=== PATIENT | male | born 1990 | race Caucasian/White ===

== ENCOUNTER 2019-05-29 17:23 | Inpatient (IN) | payer OTHER ==
[~2019-05-29] VITALS: Ht 182.9 cm; Wt 78.0 kg
[2019-05-29 19:05] VITALS: BP 122/72
--- NOTE | 2019-05-29 19:56 | PDOC1 ---
History and Physical Date of Admission Date of Admission DATE: 05/29/19 TIME: 19:46 Identification/Chief Complaint Chief Complaint seen in er [facility] ER WITH POSSIBLE SEIZURE Past Medical History Past Medical History SEIZURES Cardiovascular: No pertinent hx Pulmonary: No pertinent hx GI: No pertinent hx Endocrine: No pertinent hx Dermatology: No pertinent hx Family History Family History: High Cholestrol Social History Smoke: No ALCOHOL: none Drugs: None ROS Review of System 14 PT ROS OTHERWISE WNL General: No: Chills, Night Sweats, Fatigue, Malaise, Appetite, Other PSYCHOLOGICAL ROS: No: Anxiety, Behavioral Disorder, Concentration difficultie, Decreased libido, Depression, Disorientation, Hallucinations, Hostility, Irritablity, Memory difficulties, Mood Swings, Obsessive thoughts, Physical abuse, Sexual abuse, Sleep disturbances, Suicidal ideation, Other Eyes: No Blurry vision, No Decreased vision, No Double vision, No Dry eyes, No Excessive tearing, No Eye Pain, No Itchy Eyes, No Loss of vision, No Photophobia, No Scotomata, No Uses contacts, No Uses glasses, No Other HEENT: No: Heacaches, Visual Changes, Hearing change, Nasal congestion, Nasal discharge, Oral lesions, Sinus pain, Sore Throat, Epistaxis, Sneezing, Snoring, Tinnitus, Vertigo, Vocal changes, Other ALLERGY AND IMMUNOLOGY: No: Hives, Insect Bite Sensitivity, Itchy/Watery Eyes, Nasal Congestion, Post Nasal Drip, Seasonal Allergies, Other Hematological and Lymphatic: No: Bleeding Problems, Blood Clots, Blood Transfusions, Brusing, Night Sweats, Pallor, Swollen Lymph Nodes, Other ENDOCRINE: No: Breast Changes, Galactorrhea, Hair Pattern Changes, Hot Flashes, Malaise/lethargy, Mood Swings, Palpitations, Polydipsia/polyuria, Skin Changes, Temperature Intolerance, Unexpected Weight Changes, Other Respiratory: No: Cough, Hemoptysis, Orthopnea, Pleuritic Pain, Shortness of breath, SOB with excertion, Sputum Changes, Stridor, Tachypnea, Wheezing, Other Cardiovascular: No Chest Pain, No Palpitations, No Orthopnea, No Paroxysmal Noc. Dyspnea, No Edema, No Lt Headedness, No Other Gastrointestinal: No Nausea, No Vomiting, No Abdominal Pain, No Diarrhea, No Constipation, No Melena, No Hematochezia, No Other Genitourinary: No Dysuria, No Frequency, No Incontinence, No Hematuria, No Retention, No Discharge, No Urgency, No Pain, No Flank Pain, No Other, No , No , No , No , No , No , No Musculoskeletal: No Gait Disturbance, No Joint Pain, No Joint Stiffness, No Joint Swelling, No Muscle Pain, No Muscular Weakness, No Pain In:, No Swelling In:, No Other Neurological: Yes Seizures Skin: No Dry Skin, No Eczema, No Hair Changes, No Lumps, No Mole Changes, No M ottling, No Nail Changes, No Pruritus, No Rash, No Skin Lesion Changes, No Other, No Acne Physical Exam General: Alert, Oriented X3, Cooperative, No acute distress HEENT: PERRLA Lungs: Clear to auscultation, Normal air movement Heart: S1S2, RRR, no thrills, no rubs, no gallops, no murmurs Breasts: Not examined Abdomen: Normal bowel sounds, Soft Rectal Exam: not examined PELVIC: Examination not indicated Neuro: Normal speech, Strength at 5/5 X4 ext, Sensation intact, Cranial nerves 3-12 NL Psych/Mental Status: Mental status NL, Mood NL VTE Prophylaxis Ordered VTE Prophylaxis Devices: Yes VTE Pharmacological Prophylaxi: Yes Assessment/Plan Assessment/Plan IMPRESSION 1. Apparent pseudoseizure 2. hx seizure disorder plan home meds seizure precautions neurology consult dvt prophylaxis cont KEPPRA 1000mg po bid KEPPRA level 60 min pt exam, chart review, > 50% of time spent with exam, chart review, pt care coordination SHOAIB PERDUE MD May 29, 2019 19:56
[2019-05-29] MEDS ORDERED: DOCUSATE SODIUM 100 MG CAPSULE. PO PRN (20:00)
[2019-05-29] MEDS ORDERED: guaiFENesin ORAL 200 MG/10 ML LIQUID. PO PRN (20:00)
[2019-05-29] MEDS ORDERED: ACETAMINOPHEN 325 MG TABLET. PO PRN (20:00)
[2019-05-29] MEDS ORDERED: cloNIDine HCL 0.1 MG TABLET PO PRN (20:00)
[2019-05-29] MEDS ORDERED: LORazepam 0.5 MG TABLET PO PRN (20:00)
[2019-05-29] MEDS ORDERED: ONDANSETRON PF 4 MG/2 ML VIAL. IV PRN (20:00)
[2019-05-29] MEDS ORDERED: MAG HYDROX/ALUMINUM HYD/SIMETH 30 ML ORAL.SUSP PO PRN (20:00)
[2019-05-29] MEDS ORDERED: 0.9 % SODIUM CHLORIDE 10 ML DISP.SYRIN. IV PRN (20:00)
[2019-05-29] MEDS ORDERED: ALBUTEROL SULFATE 2.5 MG/3 ML NEBU. NEB PRN (20:00)
[2019-05-29] MEDS ORDERED: PARO10TA57 PO (20:14)
[2019-05-29] MEDS ORDERED: LEVE100020 PO (20:14)
[2019-05-29] MEDS ORDERED: HYDR25TA PO (20:14)
[2019-05-29] MEDS ORDERED: DIVA500T2 PO (20:14)
[2019-05-29] MEDS: IV NORMAL SALINE 1000ML BAG 1,000 ML IV SCH (20:29)
[2019-05-29] MEDS ORDERED: PARoxetine 10 MG TABLET PO SCH (22:00)
[2019-05-29] MEDS: levETIRAcetam 500 MG TABLET PO SCH (22:32)
[2019-05-29] MEDS: DIVALPROEX DELAYED RELEASE 500 MG TABLET.DR. PO SCH (22:34)
[2019-05-29] MEDS: hydrOXYzine 25 MG TABLET PO SCH (22:34)
[2019-05-29 23:04] VITALS: BP 118/60
[2019-05-30 03:12] VITALS: BP 110/56
[2019-05-30] MEDS: IV NORMAL SALINE 1000ML BAG 1,000 ML IV SCH (05:59)
[2019-05-30 07:00] VITALS: BP 127/58
[2019-05-30] MEDS: DIVALPROEX DELAYED RELEASE 500 MG TABLET.DR. PO SCH (08:58)
[2019-05-30] MEDS: hydrOXYzine 25 MG TABLET PO SCH (08:58)
[2019-05-30] MEDS: levETIRAcetam 500 MG TABLET PO SCH (08:58)
[2019-05-30] MEDS ORDERED: ENOXAPARIN 40 MG/0.4 ML SYRINGE. SQ SCH (09:00)
[2019-05-30] MEDS ORDERED: hydrOXYzine 25 MG TABLET PO SCH (09:00)
[2019-05-30] MEDS ORDERED: DIVALPROEX DELAYED RELEASE 500 MG TABLET.DR. PO SCH (09:00)
[2019-05-30] MEDS ORDERED: ACETAMINOPHEN 500 MG TABLET PO PRN (09:00)
[2019-05-30] MEDS ORDERED: PARoxetine 10 MG TABLET PO SCH (09:00)
[2019-05-30] MEDS ORDERED: ONDANSETRON PF 4 MG/2 ML VIAL. IV PRN (09:00)
[2019-05-30 11:00] VITALS: BP 126/74
--- NOTE | 2019-05-30 11:10 | PDOC2 ---
NEUROLOGY CONSULT Date of Admission Date of Admission DATE: 05/30/19 TIME: 11:02 Reason for Consult Reason for Consult: seizures Referring Physician Referring Physician: Dr. Sampson Source Source: Chart review, Patient History of Present Illness History of Present Illness The patient is a 28-year-old right-handed male inmate who says that he has had seizures since . He says they come on when he is under stress. he was in the [facility] department on the night of 05/28 and had a negative head CT has reviewed below, then returned on 05/29 with more seizures. It was decided to transfer the patient to this hospital. I note from the emergency department record from 05/29 that the patient's "seizure" ceased when he was told he was going to need a [place] catheter.He says that he often bites his tongue during the seizures, but there is no incontinence. These are generalized convulsive of seizures. There is no aura. Past Medical History CENTRAL NERVOUS SYSTEM: Seizure Psych: Addictions ( methamphetamine), Depression (Suicide attempt) Past Surgical History Past Surgical History: No pertinent history Family History Family History: Other ( mother and sister have seizures) Social History Social History Inmate, ex-methamphetamine user, occasional tobacco, no alcohol Current Medications Current Medications Current Medications Sodium Chloride (Normal Saline Flush) 3 ml QSHIFT PRN IV AFTER MEDS AND BLOOD DRAWS; Start 05/29/19 at 20:00 Sodium Chloride 1,000 ml @ 100 mls/hr Q10H IV Last administered on 05/30/19at 05:59; Start 05/29/19 at 21:00 Ondansetron HCl (Zofran) 4 mg PRN Q4HRS PRN IV NAUSEA/VOMITING; Start 05/29/19 at 20:00; Stop 05/30/19 at 08:55; Status DC Acetaminophen (Tylenol) 650 mg PRN Q4HRS PRN PO TEMP OVER 100.4F OR MILD PAIN; Start 05/29/19 at 20:00; Stop 05/30/19 at 08:54; Status DC Al Hydroxide/Mg Hydroxide (Mylanta Plus Xs) 30 ml PRN DAILY PRN PO HEARTBURN / GAS; Start 05/29/19 at 20:00 Clonidine HCl (Catapres) 0.1 mg PRN Q6HRS PRN PO SBP>160 OR DBP>90; Start 05/29/19 at 20:00 Docusate Sodium (Colace) 100 mg PRN BID PRN PO CONSTIPATION; Start 05/29/19 at 20:00 Albuterol Sulfate (Ventolin Neb Soln) 2.5 mg PRN Q4HRS PRN NEB SHORTNESS OF BREATH; Start 05/29/19 at 20:00 Guaifenesin (Robitussin) 200 mg PRN Q4HRS PRN PO COUGH; Start 05/29/19 at 20:00 Lorazepam (Ativan) 0.5 mg PRN Q4HRS PRN PO ANXIETY / AGITATION; Start 05/29/19 at 20:00 Lorazepam (Ativan Inj) 2 mg PRN Q4HRS PRN IV ANXIETY / AGITATION; Start 05/29/19 at 20:00 Enoxaparin Sodium (Lovenox 40mg Syringe) 40 mg DAILY SQ Last administered on 05/30/19at 08:58; Start 05/30/19 at 09:00 Divalproex Sodium (Depakote) 500 mg BID PO ; Start 05/30/19 at 09:00; Stop 05/29/19 at 21:52; Status DC Hydroxyzine HCl (Atarax) 75 mg BID PO ; Start 05/30/19 at 09:00; Stop 05/29/19 at 21:52; Status DC Paroxetine HCl (Paxil) 10 mg DAILY PO ; Start 05/30/19 at 09:00; Stop 05/29/19 at 21:52; Status DC Levetiracetam (Keppra) 1,000 mg BID PO Last administered on 05/30/19at 08:58; Start 05/29/19 at 22:00 Divalproex Sodium (Depakote) 500 mg BID PO Last administered on 05/30/19at 08:58; Start 05/29/19 at 22:00 Hydroxyzine HCl (Atarax) 75 mg BID PO Last administered on 05/30/19at 08:58; Start 05/29/19 at 22:00 Paroxetine HCl (Paxil) 10 mg HS PO Last administered on 05/29/19at 22:34; Start 05/29/19 at 22:00 Ondansetron HCl (Zofran) 4 mg PRN Q6HRS PRN IV NAUSEA/VOMITING; Start 05/30/19 at 09:00 Acetaminophen (Tylenol) 500 mg PRN Q6HRS PRN PO HEADACHE/ TEMP Last administered on 05/30/19at 09:03; Start 05/30/19 at 09:00 Active Scripts Active Reported Paxil (Paroxetine Hcl) 10 Mg Tablet 10 Mg PO DAILY Hydroxyzine Hcl 25 Mg Tablet 75 Mg PO BID Depakote (Divalproex Sodium) 500 Mg Tablet.dr 500 Mg PO BID Keppra (Levetiracetam) 1,000 Mg Tablet 1,000 Mg PO BID Allergies Allergies: Coded Allergies: Penicillins (Verified Allergy, Intermediate, 05/29/19) ROS Review of System Negative for fever, chills, weight loss, shortness of breath, chest pain, indigestion, hematochezia, melena, and dysuria. Full 14-point review of systems is negative. Physical Exam Physical Examination General: Well-developed, well-nourished white male in no acute distress HEENT: Normocephalic and�atraumatic. Temporal arteries�pulsatile and nontender.� Neck: Supple without bruit, no meningismus� Musculoskeletal: Stability:�see neurologic. Gait exam:�see neurologic. Tone:�see neurologic.�Strength:�see neurologic.� Neurological: Mental Status:�intact, orientation, memory, attention span/concentration, language, fund of knowledge normal. Cranial Nerves:�Pupils equal and reactive to light, extraocular movements are�intact, visual mcfarland are full to confrontation. Facial sensation is normal. There is no facial asymmetry. Vestibulo-ocular reflex is intact. Palate elevates and tongue protrudes in midline. All other cranial related problems are negative except as mentioned before.�Reflexes:�2+ and symmetric with flexor plantar responses. Motor:�5/5 strength with normal tone and bulk. Coordination:�Finger-nose finger and [id number] testing are normal. Rapid alternating movements and fine finger m ovements are intact. Gait:�Normal, including tandem. Sensory:�Normal pinprick, vibration, light touch, proprioception.� Vitals VITALS Vital Signs Date Time Temp Pulse Resp B/P (MAP) Pulse Ox O2 Delivery O2 Flow Rate FiO2 05/30/19 07:00 98.1 72 18 127/58 (81) 99 Room Air 98.[address] HEAD WO CONTRAST, 05/28, [facility] No acute extra-axial or parenchymal hemorrhage is identified. There is no significant intra-axial mass effect, midline shift, or extra-axial fluid collection. The ellis-white differentiation of the major vascular territories is preserved. The ventricles, sulci, and cisterns are within normal limits in size and configuration. Mastoid air cells are aerated. There is likely mucus retention cyst left sigmoid sinus about 0.9 cm, small air-fluid level or dependent mucosal thickening of the sphenoid sinus. No acute calvarial abnormality is identified. Impression: 1. No acute intracranial abnormality is identified. 2. There is small air-fluid level or dependent mucosal thickening in the sphenoid sinus. Assessment/Plan Assessment/Plan Impression: Psychogenic nonepileptic seizures Recommendations: It's hard to believe that this 28-year-old with supposedly congenital epilepsy has never had an MRI or an EEG, but I will go ahead and order these. Continue levetiracetam and Depakote Returned to [facility] today if studies negative If he has more seizures, he should not come to our hospital, he should go to a hospital with epileptologist and an epilepsy monitoring unit, neither of which we have. Thank you for letting me help with the patient's care. RAMIN KENNEDY MD May 30, 2019 11:10
[2019-05-30] MEDS ORDERED: LORA0.5T PO (11:26)
--- NOTE | 2019-05-30 11:30 | PDOC3 ---
Discharge Summary Visit Information Date of Admission: May 29, 2019 Date of Discharge: May 30, 2019 Admitting Diagnosis Comment: SZ vs pseudosz Incarcerated Brief Hospital Course Allergies Allergies Coded Allergies Type Severity Reaction Last Updated Verified Penicillins Allergy Intermediate 05/29/19 Yes Vital Signs Vital Signs Date Time Temp Pulse Resp B/P (MAP) Pulse Ox O2 Delivery O2 Flow Rate FiO2 05/30/19 11:00 98.1 55 14 126/74 (91) 98 Room Air 98.1 Brief Hospital Course Mr. Joseph is a 28 old incarcerated white male with known hx of sz since a child, on 2 AEDs, came in bec of "sz x 1 hr" - seen on tele floor, MRI , EEG and keppra levels pending, NO more SZ, If work up neg, has been cleared by neuro to go back to custodial, Pt seen and examined, I agree with plan FULL CODE Dc < 30 mins consults: neuro no change in doses of home meds Discharge Information Condition at Discharge: Improved, Stable Disposition/Orders: Other (custodial) Scheduled Divalproex Sodium (Depakote) 500 Mg Tablet.dr, 500 MG PO BID for sz, (Reported) Entered as Reported by: DENA NICKERSON on 05/29/192013 Last Taken: Unknown Dose on 05/29/19899 Last Action: Continued on 05/29/192138 by DENA NICKERSON Hydroxyzine Hcl (Hydroxyzine Hcl) 25 Mg Tablet, 75 MG PO BID for mood, (Reported) Entered as Reported by: DENA NICKERSON on 05/29/192013 Last Taken: Unknown Dose on 05/29/19899 Last Action: Continued on 05/29/192138 by DENA NICKERSON Levetiracetam (Keppra) 1,000 Mg Tablet, 1,000 MG PO BID for sz, (Reported) Entered as Reported by: DENA NICKERSON on 05/29/192013 Last Taken: Unknown Dose on 05/29/19899 Last Action: Converted on 05/29/192138 by DENA NICKERSON Paroxetine Hcl (Paxil) 10 Mg Tablet, 10 MG PO DAILY for mood, (Reported) Entered as Reported by: DENA NICKERSON on 05/29/192013 Last Taken: Unknown Dose on 05/29/19899 Last Action: Continued on 05/29/192138 by DENA NICKERSON Scheduled PRN Lorazepam (Lorazepam) 0.5 Mg Tablet, 0.5 MG PO PRN Q4HRS PRN for ANXIETY / AGITATION, #15 Prescribed by: ARIANNE COLES on 05/30/19 [id number] ARIANNE COLES MD May 30, 2019 11:29
[2019-05-30 11:31] LABS: HEMATOCRIT 39.6 % (39.0-53.0); HEMOGLOBIN 13.5 g/dL (13.0-17.5)
[2019-05-30 11:37] LABS: CREATININE 0.8 mg/dL (0.7-1.3); GFR 116.9
--- NOTE | 2019-05-30 14:01 | EEG ---
DATE OF SERVICE: 05/30/2019 DATE OF STUDY: 05/30/2019. EEG NUMBER: [id number]. OBJECTIVE: The patient is a 28-year-old male with suspected nonepileptic seizures. DESCRIPTION: This is a video study. Bipolar and referential montages are available. Activation procedures typically include hyperventilation and intermittent photic stimulation. INTERPRETATION: The waking background consists of 9-10 Hz, 50-100 microvolt activity, symmetrically distributed over parietooccipital regions and reactive to eye opening. A typical seizure event is recorded. There is some muscle artifact, but no abnormal epileptic activity. In fact, one can discern a normal background activity throughout the recording of this event. Hyperventilation is poorly performed. Intermittent photic stimulation is noncontributory. Sleep is not achieved. IMPRESSION: This electroencephalogram with the patient awake only, during which one of his typical events was recorded, is normal. There was no focal, paroxysmal, or epileptiform activity either during the event or outside of it. The findings are consistent with nonepileptic seizures. Thank you for letting us help with the patient's care. RAMIN KENNEDY MD DR: KOBY/rey JOB#: [id number] / [id number]
--- NOTE | 2019-05-30 14:11 | PDOC ---
Provider Note Provider Note I spoke to Mr. Hammond, product/device technologist and read the EEG, then came over to the hospital room where the patient was having trembling movements, definitely not in any type of a seizure pattern. He was very sweaty. I pulled the patient out of bed and stood him up and he was able to stand on his own, sitting to the floor in a controlled fashion, I kept telling him that he was not having epileptic seizures and he could stop, and he finally did cease the movements. He was rubbing his eyes. He was able to climb back in the bed. I am sending him back to the custodial. He should never return to [facility] as if he needs epileptic monitoring, this should be done in an epilepsy monitoring unit. I did write out tapers for his levetiracetam and Depakote. RAMIN KENNEDY MD May 30, 2019 14:11
[2019-05-30 14:57] VITALS: BP 111/65
== END 2019-05-30 15:30 | disposition home or self-care (01) | DRG 101 ==
LOC: 6 SOUTH 19:20 → EEVIPCON 19:20
PROVIDERS: ADMIT Family Medicine; ATTEND Family Medicine
DX: G40.409 Other generalized epilepsy and epileptic syndromes, not intractable, without status epilepticus (principal); F32.9 Major depressive disorder, single episode, unspecified; Z79.899 Other long term (current) drug therapy; Z88.0 Allergy status to penicillin
CPT/HCPCS: 36415; 80177; 82565; 82962; 85014; 85018; 85049; 95816; J1650; J7030; G0378